=== PATIENT | female | born 2000 | race Hispanic/Latino ===

== ENCOUNTER 2020-06-14 11:58 | Outpatient (CLI) | payer MEDICAID ==
[2020-06-15 02:28] LABS: SARS-CoV-2 MS2 Positive; SARS-CoV-2 N Gene Negative; SARS-CoV-2 S Gene Negative; SARS-CoV-2 by NAA Not Detected (NotDetected); SARS-CoV-2 orf1ab Negative
== END 2020-06-14 11:59 | disposition home or self-care (01) ==
LOC: LABBT 11:58
PROVIDERS: ATTEND Family Medicine
DX: Z01.812 Encounter for preprocedural laboratory examination (principal); Z20.822 Contact with and (suspected) exposure to COVID-19
CPT/HCPCS: 87635; U0003

== ENCOUNTER 2020-06-18 19:15 | Inpatient (IN) | payer OTHER, SELFPAY ==
[~2020-06-18 19:15] MED LIST: Bupivacaine HCl 0.5%/Epinephrine 1:200,000/PF 30 ml Vial ONE
[2020-06-18] MEDS ORDERED: Promethazine HCl 25 MG/ML VIAL IM PRN (20:42)
[2020-06-18] MEDS ORDERED: NS / Oxytocin 40 units/1000ml 1,000 ML IV PRN (20:42)
[2020-06-18] MEDS ORDERED: Ondansetron PF 4 MG/2 ML Vial IVP PRN (20:42)
[2020-06-18] MEDS ORDERED: Lidocaine 1% (PF) 30 ML VIAL SC PRN (20:42)
[2020-06-18] MEDS ORDERED: Acetaminophen 500 MG TAB PO PRN (20:42)
[2020-06-18] MEDS ORDERED: hydrALAZINE 20 MG/ML VIAL SLOW IVP PRN (20:42)
--- NOTE | 2020-06-18 21:09 | PDOC.FPROB ---
FMR OB H&P: HPI - History of Present Illness Chief Complaint: eIOL Indentification: 20 yo @ 39.1 wks here for eIOL History of Present Illness: Patient is 20 yo @ 39.1 wks here for eIOL. She reports that overall she has been feeling well but has back pain and some lower abdominal pressure. She denies feeling ctx, VB, V LOF and reports good FM. She is here with her boyfriend (FOB) and they are excited to meet the baby, Neda. Primary Care Physician: Elizabeth FMR OB H&P: Current - Care : 1 Para: 0 Gestational age: 39.1 weeks Due date: 06/24/20 Dating Criteria: 18.3 wk sono Course/Complications: UTI (MARILEE negative), anemia, obesity (BMI 37), VZV titer equivocal - OB Labs Blood type: A RH: positive HIV: negative RPR: negative HepBsAg: negative Rubella: immune 3 hour GTT: 2 hr GTT 73/95/75 GBS: negative - Additional Ultrasound Additional: [place] 74.2% 05/21/20 FMR OB H&P: History - Past Medical History PMH: allergic rhinitis, hx MJ use, obesity - Surgical History Sx History: Tympanostomy as a child - Social History Social History: Hx of MJ use, denies etoh, tobacco - Family History Family History: Aunt-T2DM FMR OB H&P: Medications - Current Home Medications: Medication Instructions Recorded Confirmed Type Pnv No.95/Ferrous Fum/Folic AC 1 each PO DAILY 06/18/20 06/18/20 History [ [place]] Allergies/Adverse Reactions: Allergies Allergy/AdvReac Type Severity Reaction Status Date / Time No Known Allergies Allergy Unverified 06/18/20 22:23 FMR OB H&P: ROS - Review of Systems General: denies: fever/chills, recent trauma Eyes: denies: eye pain, vision changes ENT: denies: nasal congestion, rhinorrhea Respiratory: denies: cough, congestion Gastrointestinal: reports: abdominal pain. denies: nausea, vomiting Genitourinary (Female): denies: incontinence, dysuria, vaginal discharge, vaginal bleeding, contractions Musculoskeletal: denies: pain, swelling Integumentary: denies: itching, rash FMR OB H&P: Vital Signs - Maternal Vital signs: Reviewed, AFVSS - Heart Tones Baseline: 150 Variability: moderate Acceleration: present Deceleration: absent Category: category 1 [place] contractions every: irregular, Q5-8 mins FMR OB H&P: Physical Exam - Physical Exam General: NAD HEENT: normocephalic and atraumatic, grossly normal vision, grossly normal hearing Heart: RRR, normal S1/S2, no murmurs/rubs/gallops General: CTAB, no respiratory distress, good air movement Abdomen: gravid, non-tender FMR OB H&P: A/P Disposition: Admit to L&D for eIOL Discussion: Date/Time: 06/18/20 2106 20 yo @ 39.1 here for eIOL Term sIUP here for eIOL - Patient 39.1 wks today, GABRIEL 06/24/20 - Membranes intact, GBS negative - FHT: Baseline: 150, mod variability, no decels, ctx irregular ~q4 mins, cat 1 strip - Continuous external monitoring, monitor VS - SVE: c/t/h @ 2230 - Cytotec induction, recheck SVE in 4 hrs - Dose 1 @ 2245 - Patient desires epidural - Consider other augmentation with progression Dispo: Next SVE in 4 hrs This H&P was discussed with Dr. Wharton and Dr. Pacheco who agree with the above documentation and plan. Addendum - Attending - Attending Attestation Date/Time: 06/18/20 3376 I personally evaluated the patient and discussed the management with Dr. Ramos I agree with the History, Examination, Assessment and Plan documented above with any addition or exceptions noted below.
[2020-06-18 21:30] LABS: Hemoglobin 12.5 g/dL (12.0-16.0); Mean Corpuscular HGB CONC 34.8 g/dL (32.0-36.0); Mean Corpuscular Hemoglobin 29.9 pg (25.0-35.0); Mean Platelet Volume 9.2 fL (7.4-10.4); Platelet Count 195 thou/uL (130-400); RBC Distribution Width 12.5 % (11.5-14.5); Red Blood Cell (RBC) Count 4.16 mill/uL (4.00-5.20); White Blood Cell (WBC) Count 10.2 thou/uL (4.8-10.8)
[2020-06-18 22:07] LABS: Syphilis Antibody Nonreactive (Nonreactive); Syphilis Antibody Index 0.05 S/CO (<1.00 Non-Reactive)
[2020-06-18 22:21] VITALS: BMI 41.5
[2020-06-18 22:42] LABS: HBSAg Index 0.17 S/CO (0-0.99); Hep B Surf Ag Non-Reactive S/CO (NonReactive)
[2020-06-18] MEDS: Misoprostol 100 MCG TAB VAG SCH (22:46)
--- NOTE | 2020-06-19 06:54 | PDOC.LDPN ---
Labor & Delivery Progress Note - Subjective Subjective: comfortable - Objective Vital signs reviewed and normal: yes General: NAD, resting Dilation: fingertip Effacement: 50% Station: -3 FHT: category 1, variability present [place] contractions every: 2-3 min Plan: continue plan of care, labor augmentation -: 20 yo G1 @ 39.2 presents for eIOL Term sIUP - 39.2 wks EGA, GABRIEL 06/24/20, covid neg - Membranes intact, GBS negative - Continuous external monitoring, monitor VS - Vertex on bedside sono - SVE: c/t/h @ 2230, cytotec @ 2245 - c/t/h @ 0300, 2nd cytotec /-3 @ 0630, FHTs baseline 140, mod variability, no decels, ctx q2-3 min, cat 1 FHT - Plan to place another cytotec once her contractions space out further - Patient desires epidural Yury Parker MD PGY3 Addendum - Attending - Attending Attestation Date/Time: 06/19/20 0813 I personally evaluated the patient and discussed the management with Dr. Parker I agree with the History, Examination, Assessment and Plan documented above with any addition or exceptions noted below. Continue current plan. Continue miso at this time. Caterina
[2020-06-19] MEDS: Misoprostol 100 MCG TAB VAG SCH ×2 (07:17→12:21)
[2020-06-19 07:18] LABS: Hemoglobin 12.2 g/dL (12.0-16.0); Mean Corpuscular HGB CONC 34.6 g/dL (32.0-36.0); Mean Corpuscular Hemoglobin 29.9 pg (25.0-35.0); Mean Corpuscular Volume 86.5 fL (78.0-98.0); Mean Platelet Volume 8.3 fL (7.4-10.4); Platelet Count 159 thou/uL (130-400); RBC Distribution Width 12.4 % (11.5-14.5); Red Blood Cell (RBC) Count 4.06 mill/uL (4.00-5.20); White Blood Cell (WBC) Count 8.1 thou/uL (4.8-10.8)
[2020-06-19 08:01] LABS: HBSAg Index 0.16 S/CO (0-0.99); Hep B Surf Ag Non-Reactive S/CO (NonReactive); Syphilis Antibody Nonreactive (Nonreactive); Syphilis Antibody Index 0.04 S/CO (<1.00 Non-Reactive)
--- NOTE | 2020-06-19 10:15 | PDOC.LDPN ---
Labor & Delivery Progress Note - Subjective Subjective: comfortable - Objective Vital signs reviewed and normal: yes Plan: continue plan of care -: 20 yo G1 @ 39.2 presents for eIOL Term sIUP - 39.2 wks EGA, GABRIEL 06/24/20 - 3rd cytotec placed at 0715 - VS reviewed and wnl - Reviewed strip, Cat 1 baseline 145, had episode of Cat 2 due minimal variability, no decels, cxns not currently picking up well on monitor - Pt now eating some breakfast and off external monitors - Plan for cervical check at 1115 Addendum - Attending - Attending Attestation Date/Time: 06/19/20 1112 I personally evaluated the patient and discussed the management with Dr. Parker I agree with the History, Examination, Assessment and Plan documented above with any addition or exceptions noted below. Continue current plan. Continue cheo. Caterina
[2020-06-19] MEDS: Butorphanol Tartrate 1 MG/ML VIAL SLOW IVP PRN ×2 (11:31→13:49)
--- NOTE | 2020-06-19 11:32 | PDOC.LDPN ---
Labor & Delivery Progress Note - Subjective Subjective: comfortable, vaginal pressure, no concerns - Objective Vital signs reviewed and normal: yes General: NAD, resting Dilation: 1 Effacement: 50% Station: -2 FHT: category 1 [place] contractions every: q2-3 min Plan: continue plan of care, labor augmentation -: 20 yo G1 @ 39.2 presents for eIOL Term sIUP - 39.2 wks EGA - SVE: c/t/h @ 2230, 1st cytotec @ 2245 - c/t/h @ 0300, 2nd cytotec /-3 @ 0630, 3rd cytotec @ 0715 /-2 @ 1115 -FHTs: baseline 140s, some episodes of minimal variability, no decels, currently Cat 1 strip with mod variability - Continue eIOL with 4th cytotec placement - Plan to recheck in 3-4 hrs Yury Parker MD PGY3 Addendum - Attending - Attending Attestation Date/Time: 06/19/20 1208 I personally evaluated the patient and discussed the management with Dr. Parker I agree with the History, Examination, Assessment and Plan documented above with any addition or exceptions noted below. Doing well. Cat 1 tracing. Still with unfavorable cervix. Would continue with up to 5 miso. At that time this will be 24 hours. If not successful to obtain a [place] of 6 to 8 would discuss going home and return a few days later. Caterina
[2020-06-19] MEDS ORDERED: Fentanyl 4 mcg/Bup 0.1% Cadd 100 ML ONE (17:02)
--- NOTE | 2020-06-19 17:04 | PDOC.LDPN ---
Labor & Delivery Progress Note - Subjective Subjective: painful contractions - Objective Vital signs reviewed and normal: yes General: resting, breathing through contractions Dilation: 2 Effacement: 75% Station: -2 FHT: category 1, variability present [place] contractions every: 2-3 min Plan: continue plan of care, labor augmentation -: 20 yo G1 @ 39.2 presents for eIOL Term sIUP - 39.2 wks EGA - SVE: c/t/h @ 2230, 1st cytotec @ 2245 - c/t/h @ 0300, 2nd cytotec 50/-3 @ 0630, 3rd cytotec @ 0715 50/-2 @ 1115, 4th cytotec @ 1215 /-2 @ 1630 -FHTs: baseline 135, some episodes of minimal variability, no decels, now Cat 1 strip with mod variability -Discomfort wiht contractions has increased, stadol is not helping pain as much as it was -Discussed that starting epidural will commit her for an induction, pt understands and agrees to move forward -After epidural placed, plan to augment induction with cook balloon and pitocin Yury Parker MD PGY3 Addendum - Attending - Attending Attestation Date/Time: 06/19/20 9592 I personally evaluated the patient and discussed the management with Dr. Parker I agree with the History, Examination, Assessment and Plan documented above with any addition or exceptions noted below. Agree with current plan. Patient to receive epidural. Still could use some more cervical ripening prior to pitocin alone but do not fill miso would be appropriate at this time. Would place Cook balloon after epidural and start pit. Repeat exam in 4 hours or as needed. Cat 1 tracing. Caterina
[2020-06-19] MEDS ORDERED: Promethazine HCl 25 MG/ML VIAL IM PRN (18:32)
[2020-06-19] MEDS ORDERED: Naloxone HCl 0.4 mg/ml Vial IVP PRN ×2 (18:32)
[2020-06-19] MEDS ORDERED: Lactated Ringer's 500 ML IV PRN (18:32)
[2020-06-19] MEDS ORDERED: Acetaminophen 325 MG TAB PO PRN (18:32)
[2020-06-19] MEDS ORDERED: ePHEDrine 50 MG/ML VIAL SLOW IVP PRN (18:32)
[2020-06-19] MEDS ORDERED: Ondansetron PF 4 MG/2 ML Vial IVP PRN (18:32)
[2020-06-19] MEDS ORDERED: diphenhydrAMINE 50 MG/ML VIAL IVP PRN (18:32)
[2020-06-19] MEDS ORDERED: Communication Order-Pharmacy FS SCH (18:45)
[2020-06-19] MEDS: Lactated Ringer's 1,000 ML IV SCH ×2 (18:47→21:53)
[2020-06-19] MEDS: Fentanyl 4 mcg/Bupivacaine 0.1% Cassette 100 ML EPIDURAL SCH (18:48)
--- NOTE | 2020-06-19 21:45 | PDOC.LDPN ---
Labor & Delivery Progress Note - Subjective Subjective: comfortable - Objective Vital signs reviewed and normal: yes General: NAD Uterine fundus: non tender SVE: Balloon in place FHT: category 1, variability present, absent or minimal variables [place] contractions every: difficult to monitor, Q2mins with last good monitor reading Other exam findings: FHT with ~15 min period of minimal variability ~10 mins before exam Plan: continue plan of care -: Term sIUP - 39.2 wks EGA - SVE: c/t/h @ 2230, 1st cytotec @ 2245 - c/t/h @ 0300, 2nd cytotec /-3 @ 0630, 3rd cytotec @ 0715 /-2 @ 1115, 4th cytotec @ 1215 /2 @ [address] @ 2029 -FHTs: baseline 140, some episodes of minimal variability, no decels, now Cat 1 strip with mod variability -Comfortable with epidural - Give FHT 10 mins, if still mod variability then start pitocin Discussed with Dr. Pacheco @ 2144, after initial exam, balloon is out, SVE is now 4cm
[2020-06-19] MEDS: NS w/ Oxytocin 30 units 500 ML IVPB SCH (21:48)
--- NOTE | 2020-06-20 00:14 | PDOC.LDPN ---
Labor & Delivery Progress Note - Subjective Subjective: comfortable - Objective Vital signs reviewed and normal: yes General: NAD Uterine fundus: non tender SVE: 80/-2 FHT: category 2, absent or minimal variables [place] contractions every: q2-3 mins Procedures: AROM with IUPC and FSE placed AROM: meconium stained fluid IUPC placed: yes FSE placed: yes Plan: continue plan of care, labor augmentation, pitocin for augmentation -: - 39.2 wks EGA - SVE: c/t/h @ 2230, 1st cytotec @ 2245 - c/t/h @ 0300, 2nd cytotec 50/-3 @ 0630, 3rd cytotec @ 0715 /-2 @ 1115, 4th cytotec @ 1215 /-2 @ [address] @ 202980/0 @ 0100 -FHTs: baseline 150, currently minimal variability for ~8 mins, no decels, now cat 2 strip - continue to monitor for changes in variability -Comfortable with epidural - internal monitoring, pitocin @ 2, can titrate up based on monitoring. Discussed with Dr. Pacheco
[2020-06-20] MEDS ORDERED: Fentanyl 4 mcg/Bup 0.1% Cadd 100 ML ONE (01:35)
[2020-06-20] MEDS: Fentanyl 4 mcg/Bupivacaine 0.1% Cassette 100 ML EPIDURAL SCH (01:41)
[2020-06-20] MEDS ORDERED: Ondansetron ODT 4 MG TAB PO PRN (02:47)
--- NOTE | 2020-06-20 03:18 | PDOC.LDPN ---
Labor & Delivery Progress Note - Subjective Subjective: comfortable - Objective Vital signs reviewed and normal: yes General: NAD Uterine fundus: non tender SVE: 5/100/0 per nurse FHT: category 2, absent or minimal variables (minimal variation for ~15 minutes at time of check, previously moderate) [place] contractions every: 3-4 mins Plan: continue plan of care, labor augmentation -: - 39.2 wks EGA - SVE: c/t/h @ 2230, 1st cytotec @ 2245 - c/t/h @ 0300, 2nd cytotec 50/-3 @ 0630, 3rd cytotec @ 0715 50/-2 @ 1115, 4th cytotec @ 1215 /-2 @ [address] @ 2029 5/80/0 @ 0100 5/100/0 @ 0300 -FHTs: baseline 150, currently minimal variability for ~15 mins, no decels, now cat 2 strip - continue to monitor for changes in variability -Comfortable with epidural - internal monitoring, pitocin @ 6, will likely uptitrate after bolus for epidural completed. Discussed with Dr. Pacheco
[2020-06-20] MEDS: Lactated Ringer's 1,000 ML IV SCH ×2 (03:45→14:33)
--- NOTE | 2020-06-20 04:54 | PDOC.LDPN ---
Labor & Delivery Progress Note - Subjective Subjective: comfortable (Messaged by nurse with recurrent late decels ) - Objective Vital signs reviewed and normal: yes General: NAD SVE: 8/100/+1 FHT: category 3 (Pit was stopped, soon became category 2 tracing) [place] contractions every: q4 mins AROM: meconium stained fluid IUPC placed: yes FSE placed: yes (replaced by rn after coming off) Resuscitative measures: maternal IV fluids Plan: continue plan of care -: - 39.2 wks EGA - SVE: c/t/h @ 2230, 1st cytotec @ 2245 - c/t/h @ 0300, 2nd cytotec 50/-3 @ 0630, 3rd cytotec @ 0715 50/-2 @ 1115, 4th cytotec @ 1215 /-2 @ [address] @ 2029 5/80/0 @ 0100 5/100/0 @ 0300 8/100/0 @ 0500 -FHTs: baseline 150, recurrent late decels which improved to baseline 160, minimal variability, cat 2 strip with pitocin dc - continue to monitor for changes in variability -Comfortable with epidural - internal monitoring - Monitor FHT for decels - HOLD pitocin until FHT recovered Discussed with Dr. Pacheco
--- NOTE | 2020-06-20 06:55 | PDOC.LDPN ---
Labor & Delivery Progress Note - Subjective Subjective: painful contractions - Objective Vital signs reviewed and normal: yes General: NAD, resting SVE: 9/100/+2 FHT: category 2, absent or minimal variables [place] contractions every: Q3-5 MIN IUPC placed: yes FSE placed: yes Resuscitative measures: maternal position change Plan: continue plan of care -: 39.3 wks EGA, GABRIEL 06/24/20 - SVE: c/t/h @ 2230, 1st cytotec @ 2245 - c/t/h @ 0300, 2nd cytotec 50/-3 @ 0630, 3rd cytotec @ 0715 150/-2 @ 1115, 4th cytotec @ 1215 /-2 @ [address] @ 2029 5/80/0 @ 0100 5/100/0 @ 0300 8/100/0 @ 0500 9/100/+2 @ 0700 -FHTs: baseline 150, minimal variability, no decels or accels, cat 2 strip - Comfortable with epidural, starting to feel more contractions - internal monitoring present - Monitor FHT for decels - continue to hold brian Parker MD PGY3 Addendum - Attending - Attending Attestation Date/Time: 06/20/20 6665 I personally evaluated the patient and discussed the management with Dr. Parker I agree with the History, Examination, Assessment and Plan documented above with any addition or exceptions noted below. Patient progressed well. Expecting soon. Cat 1 to 2 tracing. Caterina
[2020-06-20] MEDS ORDERED: Dextrose 5%-Lactated Ringers 1,000 ML IV SCH (08:15)
[2020-06-20] MEDS: NS w/ Oxytocin 30 units 500 ML IVPB SCH (08:47)
[2020-06-20] MEDS ORDERED: Butorphanol Tartrate 1 MG/ML VIAL ONE (08:47)
[2020-06-20] MEDS ORDERED: Misoprostol 200 MCG TAB ONE (08:59)
--- NOTE | 2020-06-20 09:13 | PDOC.OPDEL ---
OB Operative/Delivery Note Delivery Dr/Surgeon: Dr. Yury Parker Assist: Attending Dr. Pacheco Pre-Delivery Diagnosis: elective induction Procedure/Post Delivery Dx: spontaneous vaginal delivery Weeks gestation: 39 (39.3) Anesthesia: epidural - Findings A Sex: female Weight: 0 g (weight pending) - 1 min: 8 - 5 min: 9 - Additional Findings/Plan Placenta delivered: spontaneous Repaired Obstetrical Laceration: 1st degree Estimated blood loss: QBL 250 Compilations/Other Findings: Delivering physician: Yury Parker, Attending Tara Procedure: spontaneous vaginal delivery Anesthesia: Epidural QBL: 250 mL Pre-Op Diagnosis: 1. Term intrauterine in labor 2. Hx of obesity, anemia of Post-op Diagnosis: 1. Term intrauterine , delivered 2. Same as above 3. Brief shoulder dystocia Indications: A 20 yo presents for elective IOL Delivery Note: 20 yo @ 39.3 wks delivered a viable F infant at 0844 on 06/20/2020. During her antepartum course, patient had intermittent category 2 FHTs with minimal variability and tachycardia intrapartum. A vigorous F was delivered over an intact perineum in the ANGELA position. After a brief shoulde r dystocia that resolved with Ghazal, anterior shoulder and then remainder of the body delivered. No nuchal cord. Cord was clamped and cut, cord blood and gas was collected, and was taken to warmer. Placenta delivered intact with a 3 vessel cord noted. Fundal massage was performed and fundus was firm. The cervix and vagina were inspected. A 1st degree perineal laceration was repaired with 3.0 vicryl in the usual fashion with good approximation and hemostasis noted. Left labial laceration was noted to be hemostatic. Apgars were 8/9 at 1&5 minutes respectively. Patient tolerated delivery well and will go to after routine recovery. ATTENDING ADDENDUM: I was present for and supervised the entire delivery. Brief shoulder dystocia resolved with gentle traction on the head and Ghazal maneuver. Cord gas WNL. Normal neuro exam immediately following delivery. Post delivery plan: routine recovery
[2020-06-20] MEDS ORDERED: Butorphanol Tartrate 1 MG/ML VIAL SLOW IVP SCH (09:15)
[2020-06-20] MEDS ORDERED: Misoprostol 200 MCG TAB PR SCH (09:15)
[2020-06-20 09:17] LABS: Actual Bicarbonate (HCO3v) 24 mEq/L (22-28); Base Excess -3.4 mEq/L (-2.0 to +3.0); pH (Cord, venous) 7.29 (7.32-7.43)
[2020-06-20 09:20] LABS: Actual Bicarbonate (HCO3a) 25.6 mEq/L (22-28); Base Excess (BEa) -2.7 mEq/L (-2.0 to +3.0)
[2020-06-20] MEDS ORDERED: Milk Of Magnesia 30 ML UDCUP PO PRN (10:58)
[2020-06-20] MEDS ORDERED: Varicella virus, LIVE 0.5 ML VIAL SC ONE (10:58)
[2020-06-20] MEDS ORDERED: Bisacodyl 10 MG SUPP PR PRN (10:58)
[2020-06-20] MEDS ORDERED: Preparation H Ointment 28 GM TUBE PR PRN (10:58)
[2020-06-20] MEDS ORDERED: diphenhydrAMINE 25 MG CAP PO PRN (10:58)
[2020-06-20] MEDS ORDERED: Benzocaine-Menthol 82.5 ML CAN TOP PRN (10:58)
[2020-06-20] MEDS ORDERED: Lanolin Ointment 7 GM TUBE TOP PRN (10:58)
[2020-06-20] MEDS: Misoprostol 100 MCG TAB VAG SCH ×6 (11:29→21:40)
[2020-06-20] MEDS ORDERED: Ibuprofen 800 MG TAB PO SCH (14:00)
[2020-06-20] MEDS: Ibuprofen 800 MG TAB PO SCH ×2 (14:30→21:39)
[2020-06-20] MEDS: Acetaminophen 500 MG TAB PO SCH ×2 (14:30→17:53)
[2020-06-20] MEDS: NS w/ Oxytocin 30 units 500 ML IV SCH (14:31)
[2020-06-20] MEDS: Ferrous Sulfate 325 MG TAB PO SCH (15:12)
[2020-06-20] MEDS: Docusate Calcium (SURFAK) 240 MG CAP PO SCH (21:39)
[2020-06-21] MEDS: Acetaminophen 500 MG TAB PO SCH ×4 (00:05→17:45)
[2020-06-21] MEDS: NS w/ Oxytocin 30 units 500 ML IV SCH (00:18)
[2020-06-21] MEDS: Misoprostol 100 MCG TAB VAG SCH ×2 (00:24→03:31)
[2020-06-21] MEDS: Ibuprofen 800 MG TAB PO SCH ×3 (05:23→21:24)
[2020-06-21 06:25] LABS: Hemoglobin 10.2 g/dL (12.0-16.0); Mean Corpuscular HGB CONC 33.6 g/dL (32.0-36.0); Mean Corpuscular Hemoglobin 29.3 pg (25.0-35.0); Mean Platelet Volume 8.3 fL (7.4-10.4); Platelet Count 150 thou/uL (130-400); RBC Distribution Width 12.7 % (11.5-14.5); White Blood Cell (WBC) Count 11.2 thou/uL (4.8-10.8)
--- NOTE | 2020-06-21 06:49 | PDOC.PP ---
Post Progress Note Post Day #: 1 Subjective: Pain is well controlled. Lochia minimal. She is concerned that her baby is hungry. Baby has been latching, but falls asleep at the breat. [facility]. PO intake tolerated: yes Flatus: yes Ambulation: yes Vital Signs (12 hours) Temp Pulse Resp BP Pulse Ox 06/21/20 05:00 98.3 F 96 18 117/53 L 98 06/20/20 23:45 98.7 F 95 18 119/56 L 98 06/20/20 20:00 98 06/20/20 19:46 98.1 F 95 20 113/55 L 98 Weight Weight 102.965 kg - Physical Examination General: NAD Cardiovascular: no m/r/g, RRR Respiratory: clear to auscultation bilaterally, non-labored breathing Abdominal: + bowel sounds, no distention Neurological: no gross focal deficits Psychiatric: A&Ox3, normal affect Result Diagrams: 06/21/20 06:14 Additional Labs: Post Labs Hep Bs Antigen Non-Reactive S/CO (NonReactive) 06/19/20 07:06 Blood Type A POSITIVE 06/18/20 22:21 - Assessment/Plan 20 yo G1 delivered via @ 39.3 weeks on 06/20/20 @ 0844 PPD #1 -Pain controlled, continue tylenol and ibuprofen -Minimal lochia - consulted for help with . Patient has electronic breast pump at home. -eating, voiding, amublating wel 1st degree perineal laceration, s/p repair L periurethral lac, hemostatic Brief shoulder dystocia intrapartum - resolved with Ghazal Obesity Iron def anemia -Continue Fe supplementation -Hgb decreased 2 units, will check AM hemagram VZV titers equivocal -vaccine not available inpt, will need to be given at PP visit Diet: regular DVT ppx: SCDS, frequent ambulation PCP: KARIE Parker Dispo: likely home tomorrow Yury Parker MD PGY3 Addendum - Attending - Attending Attestation Date/Time: 06/21/20 1058 I personally evaluated the patient and discussed the management with Dr. Parker I agree with the History, Examination, Assessment and Plan documented above with any addition or exceptions noted below. 20 yo female s/p complicated by brief shoulder dystocia on 06/20/20 at 0844 Patient doing well today. Lochia mild. No pain. No deficulty with urination or ambulation. Is breast feeding and would like assistance. consulted but not sure if available. Nursing staff to assist with each feed. Patient to notify them when she is feeding infant. - will need varicella booster outpatient. - likely ok to d/c to home tomorrow with close follow up on breast feeding - need to continue to discuss contraception. would benefit from LRAC. not in stable relationship at this time but FOB involved. Caterina
[2020-06-21] MEDS: Ferrous Sulfate 325 MG TAB PO SCH ×2 (07:57→17:00)
[2020-06-21] MEDS: Docusate Calcium (SURFAK) 240 MG CAP PO SCH ×2 (07:57→21:23)
[2020-06-21 23:05] VITALS: TEMP 98
[2020-06-22] MEDS: Acetaminophen 500 MG TAB PO SCH ×2 (00:13→05:46)
[2020-06-22] MEDS: Ibuprofen 800 MG TAB PO SCH (05:46)
--- NOTE | 2020-06-22 06:42 | PDOC.PP ---
Post Progress Note Post Day #: 2 Subjective: Feeling well. She feels she is getting the hang of breast feeding. She is ready to go home today. PO intake tolerated: yes Flatus: yes Ambulation: yes Vital Signs (12 hours) Temp Pulse Resp BP Pulse Ox 06/21/20 21:20 98.0 F 83 18 114/55 L 98 Weight Weight 102.965 kg - Physical Examination General: NAD Cardiovascular: no m/r/g, RRR Respiratory: clear to auscultation bilaterally, non-labored breathing Abdominal: + bowel sounds, no distention, appropriately TTP Fundus firm & at: below umbilicus Extremities: negative homans (B) Neurological: no gross focal deficits Psychiatric: A&Ox3, normal affect Result Diagrams: 06/21/20 06:14 Additional Labs: Post Labs Hep Bs Antigen Non-Reactive S/CO (NonReactive) 06/19/20 07:06 Blood Type A POSITIVE 06/18/20 22:21 - Assessment/Plan 20 yo G1 delivered via @ 39.3 weeks on 06/20/20 @ 0844 PPD #2 -Pain controlled -Minimal lochia -eating, voiding, ambulating, passing flatus -breast feeding is going much better, she has an electronic pump at home 1st degree perineal laceration, s/p repair L periurethral lac, hemostatic Brief shoulder dystocia intrapartum - resolved with Ghazal Obesity Iron def anemia -Continue Fe supplementation VZV titers equivocal -vaccine not available inpt, will need to be given at PP visit dispo: DC to home. Follow up at [facility] in 2 weeks. Pt needs VZV vaccine outpatient. Yury Parker MD PGY3 Addendum - Attending - Attending Attestation Date/Time: 06/22/20 1500 I personally evaluated the patient and discussed the management with Dr. Parker. I agree with the History, Examination, Assessment and Plan documented above with any addition or exceptions noted below.
[2020-06-22 08:14] VITALS: BP 85/45
[2020-06-22] MEDS: Ferrous Sulfate 325 MG TAB PO SCH (08:15)
[2020-06-22] MEDS: Docusate Calcium (SURFAK) 240 MG CAP PO SCH (08:59)
== END 2020-06-22 11:00 | disposition home or self-care (01) | DRG 807 ==
LOC: L&D 19:50 → 3SW 06-20 11:53
PROVIDERS: ADMIT Family Medicine; ATTEND Family Medicine
PROC: 0U7C7ZZ Dilation of Cervix, Via Natural or Artificial Opening (ICD-10-PCS; 2020-06-19)
PROC: 10E0XZZ Delivery of Products of Conception, External Approach (ICD-10-PCS; principal; 2020-06-20)
PROC: 0HQ9XZZ Repair Perineum Skin, External Approach (ICD-10-PCS; 2020-06-20)
PROC: 3E0P7VZ Introduction of Hormone into Female Reproductive, Via Natural or Artificial Opening (ICD-10-PCS; 2020-06-20)
PROC: 10907ZC Drainage of Amniotic Fluid, Therapeutic from Products of Conception, Via Natural or Artificial Opening (ICD-10-PCS; 2020-06-20)
PROC: 3E033VJ Introduction of Other Hormone into Peripheral Vein, Percutaneous Approach (ICD-10-PCS; 2020-06-20)
DX: O66.0 Obstructed labor due to shoulder dystocia (principal); Z37.0 Single live birth; Z20.822 Contact with and (suspected) exposure to COVID-19; O70.0 First degree perineal laceration during delivery; O99.02 Anemia complicating childbirth; O99.214 Obesity complicating childbirth; E66.9 Obesity, unspecified; O77.0 Labor and delivery complicated by meconium in amniotic fluid; O76 Abnormality in fetal heart rate and rhythm complicating labor and delivery; Z3A.39 39 weeks gestation of pregnancy; D50.9 Iron deficiency anemia, unspecified
CPT/HCPCS: 36415; 82805; 85027; 86780; 86850; 86900; 86901; 87340; J0595; J2405; J2590